=== PATIENT | male | born 1955 | race Caucasian/White ===

== ENCOUNTER 2021-03-30 17:59 | Inpatient (IN) | payer OTHER ==
[~2021-03-30] VITALS: Ht 177.8 cm; Wt 95.5 kg
[2021-03-30] VITALS (7 sets, daily range): BP systolic 100–127; BP diastolic 53–65
[2021-03-30] MEDS ORDERED: JARDIANCE25 MG PO (22:56)
[2021-03-30] MEDS ORDERED: OLMESARTAN MEDO20 MG PO (22:57)
[2021-03-30] MEDS ORDERED: LOVASTATIN40 MG PO (22:58)
[2021-03-30] MEDS ORDERED: TRESIBA FL100 UNIT/1 SUBQ (22:59)
[2021-03-31] VITALS (9 sets, daily range): BP systolic 86–105; BP diastolic 54–61
--- NOTE | 2021-03-31 04:06 | NUR ---
ADMITTED THIS PATIENT FROM IR AROUND 2100H,POST PULMONARY ARTERIOGRAM WITH PERCUTANEOUS THROMBECTOMY.WITH RIGHT GROIN COVERED WITH DRESSING C/D/I, NO HEMATOMA NOTED FROM THE SITE. PER IR NURSE, DR WATERS ORDERED HEPARIN DRIP TO RUN AT 1200 UNITS/HR,RELAYED TO PHARMACY THIS ORDER.MED REC DONE.ADMISSION COMPLETED.ALL NEEDS ATTENDED.TO CONTINOUSLY MONITOR.
[2021-03-31 04:58] LABS: CHOLESTEROL 130 mg/dL (<200); HDL CHOLESTEROL 43 mg/dL (>40); LDL CHOLESTEROL 70 mg/dL (<100); TRIGLYCERIDE 87 mg/dL (<150); VLDL 17 mg/dL (<40)
[2021-03-31 05:05] LABS: HEMATOCRIT 35.1 % (42.0-52.0); HEMOGLOBIN 11.7 gm/dL (14.0-18.0); MCH 29.5 pg (26.0-34.0); MCHC 33.4 g/dL (28.0-37.0); MCV 88.3 fL (80.0-100.0); RBC 3.97 mil/uL (4.50-6.00); RDW 14.1 % (10.5-14.5); WBC 8.1 thou/uL (4.0-11.0)
[2021-03-31 05:08] LABS: CALCIUM 8.3 mg/dL (8.5-10.1); CREATININE 1.4 mg/dL (0.7-1.3); POTASSIUM 4.5 mmol/L (3.5-5.1)
[2021-03-31 05:13] LABS: SERUM ASSESSMENT Clear
[2021-03-31] MEDS ORDERED: ALPRAZOLAM 0.50.5 M1 PO (05:41)
--- NOTE | 2021-03-31 12:56 | 2DMMODE ---
[facility] [place] [address] 2 D/M-MODE ECHOCARDIOGRAM Name: AMANDEEP IBARRA Room #: 200-I ADM IN M.R.#: [id number] Admission: 03/30/21 Attend Phys: Tianna Vila MD Discharge: Date of : 55 Report #: [id number] THIS REPORT FOR: cc: Amarilis Bearden MD, S. Chris MD Lundgren, Craig H. MD [facility] ~ APPROVED REPORT Study performed: 03/31/2021 11:19:43 EXAM: Comprehensive 2D, Doppler, and color-flow Echocardiogram Patient Location: Bedside Room #: 200 BSA: 2.13 HR: 60 bpm BP: 103/61 mmHg Rhythm: NSR Other Information Study Quality: Good Indications Pulmonary Embolism Elevated troponin. Hx: HTN, HLP, DM, COVID. 2D Dimensions RVDd: 53.18 mm IVSd: 7.71 (7-11mm) LVOT Diam: 23.37 (18-24mm) LVDd: 51.23 mm PWd: 8.16 (7-11mm) Ascending Ao: 35.70 (22-36mm) LVDs: 36.50 (25-40mm) Left Atrium: 36.97 (27-40mm) Aortic Root: 39.69 mm Volumes Left Atrial Volume (Systole) Single Plane 4CH: 43.28 mL Single Plane 2CH: 60.00 mL LA ESV Index: 26.00 mL/m2 Aortic Valve AoV Peak Riaz.: 1.33 m/s AO Peak Gr.: 7.11 mmHg LVOT Max P.55 mmHg [facility] [address] [place] [address] 2 D/M-MODE ECHOCARDIOGRAM Name: STACEYAMANDEEP Room #: 200-I [facility] IN [facility].#: [id number] Admission: 03/30/21 Attend Phys: Tianna Vila, Discharge: Date of : 55 Report #: [id number] LVOT Max V: 0.94 m/s VALERIE Vmax: 3.03 cm2 Mitral Valve E/A Ratio: 1.3 MV Decel. Time: 327.49 ms MV E Max Riaz.: 0.57 m/s MV A Riaz.: 0.43 m/s MV PHT: 94.97 ms IVRT: 73.82 ms Pulmonary Valve PV Peak Riaz.: 0.88 m/s PV Peak Gr.: 3.07 mmHg Pulmonary Vein P Vein S: 0.43 m/s P Vein A: 0.34 m/s P Vein D: 0.34 m/s P Vein A Dur.: 179.9 msec P Vein S/D Ratio: 1.26 Tricuspid Valve TR Peak Riaz.: 2.51 m/s RAP Estimate: 5.00 mmHg TR Peak Gr.: 25.29 mmHg PA Pressure: 30.00 mmHg Left Ventricle The left ventricle is normal size. There is normal LV segmental wall motion. There is normal left ventricular wall thickness. Left ventricular systolic function is normal. LVEF is 55-60%. Moderate diastolic dysfunction is present. Right Ventricle Right ventricle is dilated and hypokinetic Atria The left atrium size is normal. The right atrium size is normal. Aortic Valve The aortic valve is normal in structure. No aortic regurgitation is present. There is no aortic valvular stenosis. Mitral Valve The mitral valve is normal in structure. There is no mitral valve regurgitation noted. No evidence of mitral valve stenosis. Tricuspid Valve [facility] [address] [address] 2 D/M-MODE ECHOCARDIOGRAM Name: AMANDEEP IBARRA Room #: 200-I ADM IN ..#: [id number] Admission: 03/30/21 Attend Phys: Tianna Vila, Discharge: Date of : 55 Report #: [id number] The tricuspid valve is normal in structure. Mild tricuspid regurgitation. Estimated pulmonary artery pressure of 30-35mmHg Pulmonic Valve The pulmonary valve is normal in structure. Trace pulmonic regurgitation. Great Vessels Aortic root is mildly dilated (4.0cm). The inferior vena cava is not well visualized. Pericardium There is no pericardial effusion. <Conclusion> Left ventricular systolic function is normal. There is normal LV segmental wall motion. LVEF is 55-60%. Right ventricle is dilated and hypokinetic The aortic valve is normal in structure. No aortic regurgitation or stenosis. The mitral valve is normal in structure. No mitral valve regurgitation. Mild tricuspid regurgitation. Estimated pulmonary artery pressure of 30-35mmHg There is no pericardial effusion. <ELECTRONICALLY SIGNED> By: Alen Rodriguez MD, FACC 03/31/21 1255 1255 1255 Alen Rodriguez MD, FACC /INF
--- NOTE | 2021-03-31 15:15 | EKG ---
[address] [place] [address] ELECTROCARDIOGRAM REPORT Name: AMANDEEP IBARRA Room #: 200-I ADM IN M.R.#: [id number] Admission: 03/30/21 Attend Phys: Tianna Vila MD Discharge: Date of : 55 Report #: [id number] [facility] Test Date: 2021-03-31 Test Time: 08:09:53 Pat Name: AMANDEEP IBARRA Department: Room: 200 I Gender: M Mailroom Assistant: VAL : 1955 Requested By: Tianna Vila Order Number: [id number] MD: Wally Wall Measurements Intervals [place] Rate: 55 P: -55 DC: 114 QRS: 36 QRSD: 87 T: 2 QT: 412 QTc: 394 Interpretive Statements Sinus or ectopic atrial rhythm Atrial premature complexes Borderline short DC interval Borderline T abnormalities, inferior leads No previous ECG available for comparison Electronically Signed On 03-31-2021 15:14:58 IT ARCHITECTURE CONSULTANT by Wally Wall [email or web address] <ELECTRONICALLY SIGNED> By: Wally Wall MD, [facility] 03/31/21 1514 0809 8 Wally Wall MD, FACC /EPI
--- NOTE | 2021-03-31 17:21 | NUR ---
PT ON A HEPARIN DRIP THIS MORNING AT A RATE OF 14.2. PTT DRAWN THIS MORNING SHOWED PTT AT 49.5 AND HEPARIN DRIP WAS INCREASED TO 16.1 PER PROTOCOL PROVIDED BY PHARMACY. LABS WERE SCHEDULED FOR 6 HOURS AFTER ADJUSTMENTS TO THE RATE WERE MADE.
--- NOTE | 2021-03-31 17:58 | NUR ---
ASSUMED PT CARE THIS MORNING. PT A&OX4 AND COMMUNICATING NEEDS APPROPRIATELY TO STAFF. PT COMPLAINED OF A HEADACHE THROUGHOUT THE SHIFT THAT WAS WELL MANAGED WITH PO PAIN MEDICATION. DENIED SOA AND NO LONGER REQUIRES OXYGEN. SATS 99% ON ROOM AIR. PT VOIDING INTO A URINAL WITHOUT ANY ISSUES. PT HAD A GOOD APPETITE AND DENIED NAUSEA/VOMITING. HEPARIN DRIP WAS ADJUSTED PER PROTOCOL PROVIDED BY PHARMACY AND LABS ORDERED. PT DECLINED TO HAVE A FLU SHOT THIS SHIFT. PT WAS INFORMED IF THEY CHANGED THEIR MIND TO LET STAFF KNOW.
--- NOTE | 2021-03-31 18:51 | NUR ---
PT TRANSFERRED FROM THE ICU AND ARRIVED ON THE UNIT AT APPROXIMATELY 1845. PT WAS ORIENTED TO THE ROOM, TELE MONITORING STARTED, FALL EDUCATION PROVIDED, CALL LIGHT WITHIN REACH, AND 2 BED RAILS UP. PT IS A&OX4 AND COMMUNICATING NEEDS TO STAFF APPROPRIATELY.
[2021-04-01 04:11] VITALS: BP 90/52
--- NOTE | 2021-04-01 04:18 | NUR ---
RECEIVED PATIENT AT 1900H.ASSESSMENT DONE CHARTED.WITH RIGHT GROIN COVERED WITH DRESSING C/D/I.SITE HAS LITTLE BRUISING BUT SOFT, NO HEMATOMA.MEDS GIVEN PER APR.ON HEPARIN INFUSION PER PROTOCOL.ALL NEEDS ATTENDED.TO CONTINOUSLY MONITOR.
[2021-04-01 05:18] LABS: BASOPHILS 0.7 % (0.0-2.0); EOSINOPHILS 10.6 % (0.0-3.0); HEMATOCRIT 35.1 % (42.0-52.0); HEMOGLOBIN 11.7 gm/dL (14.0-18.0); LYMPHOCYTES 18.2 % (24.0-44.0); MCH 29.2 pg (26.0-34.0); MCHC 33.3 g/dL (28.0-37.0); MCV 87.8 fL (80.0-100.0); MONOCYTES 12.1 % (1.0-8.0); PLATELET COUNT 191 thou/uL (150-400); POLYS 58.4 % (36.0-66.0); RDW 14.4 % (10.5-14.5); WBC 6.8 thou/uL (4.0-11.0)
[2021-04-01 05:29] LABS: ALBUMIN 2.6 g/dL (3.4-5.0); CALCIUM 8.2 mg/dL (8.5-10.1); CREATININE 1.2 mg/dL (0.7-1.3); PHOSPHORUS 2.3 mg/dL (2.6-4.7); POTASSIUM 4.5 mmol/L (3.5-5.1); TOTAL BILIRUBIN 0.4 mg/dL (0.2-1.0); TOTAL PROTEIN 6.3 g/dL (6.4-8.2)
[2021-04-01 05:30] VITALS: BP 116/57
--- NOTE | 2021-04-01 05:52 | NUR ---
HAD COMPLAINTS OF CHEST PAIN AROUND 0530AM 07/08 PER PATIENT.VITALLY STABLE.EKG DONE.RELAYED EKG AND TROPONIN RESULT TO CARPENTER/LABOR.ORDERED TO GIVE PRN HYDROCODONE.TO CONTINOUSLY MONITOR.
[2021-04-01 07:00] VITALS: BP 91/56
[2021-04-01 07:09] LABS: GLYCOHEMOGLOBIN (HGB A1C) 9.3 % (4.8-5.6)
--- NOTE | 2021-04-01 09:25 | NUR ---
PATIENT ADMITTED FOR PULMONARY EMBOLISM. CHART REVIEWED AND DISCUSSING WITH CARE TEAM. CM MET WITH PT THIS DAY. PTS DAUGHTER DINA SWARTZ AT SIDE. CM ROLE INTRODUCED. PATIENT LIVES AT HOME ALONE. PT AND HIS HAD COVID IN NOVEMBER. PTS . PT DENIES USE OF ASST DEVICE AND INDEP WITH ADLS AND MOBILITY. FOLLOWING HOSPITALIZATION WITH COVID PT DISCHARGED HOME WITH [facility]. HE WOULD LIKE TO USE THEM AGAIN SHOULD HE NEED IT. PT IS APPREHENSIVE ABOUT GETTING UP AND WALKING. HE WOULD LIKE TO SEE HOW HE DOES WITH PT AND DECIDE IF HE SHOULD NEED HH. HE REPORTS HE NOT CONCERNED AND ABLE TO TOILET AND BATHE SELF. PTS DAUGHTER REQUESTING INFORMATION ON [place] FACILITIES FOR [place] IN [place]. RESOURCES GIVEN TO PTS DAUGHTER. PTS PCP IS DR. SRINIVASAN LICEA. PT DID REQUIRE OXYGEN WHEN DISCHARGED FROM THE HOSPITAL IN NOV. SERVICED THROUGH [facility]. HE NO LONGER REQUIRED OXYGEN AND [facility] PICKED UP EQUIPMENT. CM AWAITING PHYSICAL THERAPY RECOMMENDATIONS AND SEND REFERRAL TO [facility]. CM FOLLOWING FOR DISCHARGE PLANNING.
--- NOTE | 2021-04-01 09:45 | EKG ---
[place] [address] [facility] [place] [address] ELECTROCARDIOGRAM REPORT Name: AMNADEEP IBARRA Room #: 200-I ADM IN M.R.#: [id number] Admission: 03/30/21 Attend Phys: Tianna Vila MD Discharge: Date of : 55 Report #: [id number] [facility] Test Date: 2021-04-01 Test Time: 05:39:40 Pat Name: AMANDEEP IBARRA Department: Room: 200 I Gender: M Community Engagement Representative: [id number] : 1955 Requested By: Liliana Andrews Order Number: [id number] MD: Wally Wall Measurements Intervals [place] Rate: 64 P: 33 NV: 146 QRS: 27 QRSD: 93 T: -14 QT: 409 QTc: 422 Interpretive Statements Sinus rhythm Borderline low voltage, extremity leads Abnormal T, consider ischemia, anterior leads Compared to ECG 03/31/2021 08:09:53 Possible ischemia now present Ectopic atrial rhythm no longer present Atrial premature complex(es) no longer present T-wave abnormality still present Electronically Signed On 04-01-2021 9:45:45 PORT TRAFFIC MANAGER by Wally Wall [email or web address] <ELECTRONICALLY SIGNED> By: Wally Wall MD, FAC 04/01/21 0945 0539 0539 Wally Wall MD, MERGED WITH [facility] /EPI
[2021-04-01 11:00] VITALS: BP 111/65
[2021-04-01 15:00] VITALS: BP 111/62
--- NOTE | 2021-04-01 15:49 | NUR ---
CM SPOKE TO PT AND PTS DAUGHTER AT BEDSIDE REGARDING [place] FACILITIES. PRINTED EDUCATIONAL MATERIALS PROVIDED TO THEM. CM ALSO SPOKE ABOUT XARELTO COST AND COPAY. UNKNOWN WHAT COPAY IS AT THIS TIME WITH PTS DEDUCT. AWAITING SCRIPT. PTS DAUGHTER REPORTS NO WORRIES SHE KNEW ABOUT THE DEDUCT. CM GAVE 2 XARELTO COUPON CARDS. ONE FOR FREE 30 DAYS AND 1 FOR $10. NO FURTHER QUESTIONS FROM PT OR PTS DAUGHTER. PT ALSO INDICATED HE DID WELL WITH PT. HAS NO CONCERNS ABOUT HOME AND GOAL IS TO RETURN HOME WITH NO NEEDS. NO FURTHER CM INTERVENTIONS INDICATED AT THIS TIME.
--- NOTE | 2021-04-01 17:26 | NUR ---
ASSUMED CARE OF PATIENT THIS AM. PATIENT DENIED ANY COMPLAINTS THROUGHOUT THE SHIFT. PATIENT HAD A BM THIS AFTERNOON. VITALS REMAINED STABLE. FAMILY AT BED SIDE MOST OF THE SHIFT.
[2021-04-01 19:15] VITALS: BP 121/60
[2021-04-02 03:45] VITALS: BP 95/51
[2021-04-02 07:34] VITALS: BP 109/58
[2021-04-02] MEDS ORDERED: XARELTO20 MG PO (08:28)
[2021-04-02] MEDS ORDERED: XARELTO15 MG PO (08:28)
[2021-04-02] MEDS ORDERED: HYDROCODON-ACE1 EAC7 PO (08:28)
[2021-04-02] MEDS ORDERED: LOVASTATIN40 MG PO (08:28)
[2021-04-02 10:43] VITALS: BP 109/58
[2021-04-02 11:29] VITALS: BP 103/50
[2021-04-02 11:32] VITALS: BP 109/58
--- NOTE | 2021-04-02 11:45 | NUR ---
ASSUMED CARE OF PATIENT AT 0700. PATIENT REMAINS A&OX4, RA, C/O DISCOMFORT TO CHEST AT A 4/10 BUT DID NOT WANT ANYTHING FOR PAIN. XANAX GIVEN PER PATIENT REQUEST WHILE FINAL ANTIBOTIC RUNS. IV AND TELE DC'D AND REMOVED. DC EDUCATION COMPLETED. PATIENT PROGRESSED TOWARD POC.
== END 2021-04-02 12:20 | disposition home health service (06) | DRG 270 ==
LOC: ICU 17:59 → 2N 21:29
PROVIDERS: Nurse Practitioner; Nurse Practitioner Family; ADMIT Internal Medicine; ATTEND Internal Medicine
PROC: B31S1ZZ Fluoroscopy of Right Pulmonary Artery using Low Osmolar Contrast (ICD-10-PCS; principal; 2021-03-30)
PROC: 02CR3ZZ Extirpation of Matter from Left Pulmonary Artery, Percutaneous Approach (ICD-10-PCS; principal; 2021-03-30)
PROC: B31T1ZZ Fluoroscopy of Left Pulmonary Artery using Low Osmolar Contrast (ICD-10-PCS; principal; 2021-03-30)
PROC: 02CQ3ZZ Extirpation of Matter from Right Pulmonary Artery, Percutaneous Approach (ICD-10-PCS; principal; 2021-03-30)
PROC: 4A023N6 Measurement of Cardiac Sampling and Pressure, Right Heart, Percutaneous Approach (ICD-10-PCS; principal; 2021-03-30)
DX: I82.431 Acute embolism and thrombosis of right popliteal vein (principal); I26.99 Other pulmonary embolism without acute cor pulmonale; N17.9 Acute kidney failure, unspecified; R77.8 Other specified abnormalities of plasma proteins; J32.0 Chronic maxillary sinusitis; E11.9 Type 2 diabetes mellitus without complications; D64.9 Anemia, unspecified; E78.5 Hyperlipidemia, unspecified; I10 Essential (primary) hypertension; F32.9 Major depressive disorder, single episode, unspecified; F41.9 Anxiety disorder, unspecified; E66.3 Overweight; E78.00 Pure hypercholesterolemia, unspecified; Z68.30 Body mass index [BMI] 30.0-30.9, adult; Z28.21 Immunization not carried out because of patient refusal
CPT/HCPCS: 10081